=== PATIENT | male | born 1960 | race Caucasian/White ===

== ENCOUNTER 2017-11-12 07:55 | Emergency (ER) | payer BC ==
[~2017-11-12] VITALS: Ht 175.3 cm; Wt 76.7 kg
[2017-11-12 08:03] VITALS: BP_SYST 141
[2017-11-12] MEDS ORDERED: HYDROcodone/ACETAMIN 5-325 MG TAB (NORCO/ VICODIN) PO ONE (08:45)
== END 2017-11-12 08:30 | disposition home or self-care (01) ==
LOC: SED 07:55
DX: S43.402A Unspecified sprain of left shoulder joint, initial encounter (principal); G43.909 Migraine, unspecified, not intractable, without status migrainosus; X58.XXXA Exposure to other specified factors, initial encounter; Y93.89 Activity, other specified; Y92.096 Garden or yard of other non-institutional residence as the place of occurrence of the external cause; Y99.8 Other external cause status
CPT/HCPCS: 99283